=== PATIENT | male | born 1975 | race Caucasian/White ===

== ENCOUNTER 2018-07-12 14:31 | Emergency (ER) | payer SELFPAY ==
[~2018-07-12] VITALS: Ht 165.1 cm; Wt 89.0 kg
[2018-07-12 14:39] VITALS: BP 111/78
[2018-07-12] MEDS ORDERED: IBUP-2213 PO (14:45)
--- NOTE | 2018-07-12 14:45 | NUR ---
PT AMB TO ER BED 6
--- NOTE | 2018-07-12 14:52 | NUR ---
PT BIB FAMILY C/O RT LOW BACK/LEG PAIN S/P LIFTING A BOX 2 DAYS AGO. PAIN 10/. LIMP NOTED TO RIGHT SIDE, PT CANNOT STAND UP STRAIGHT. NO BRUISING, SWELLING, OR DEFORMITY. +CMS. VSS. ER TO SEE PT. HX-NONE MEDS-IBU NKA
[2018-07-12] MEDS ORDERED: MORPHINE SULFATE 4 MG/ML SYR IM ONE (14:55)
[2018-07-12] MEDS ORDERED: KETOROLAC 60 MG/2 ML VIAL IM ONE (14:55)
[2018-07-12 15:56] VITALS: BP 111/78
== END 2018-07-12 15:56 | disposition home or self-care (01) ==
LOC: MED 14:31
DX: S33.5XXA Sprain of ligaments of lumbar spine, initial encounter (principal); F17.200 Nicotine dependence, unspecified, uncomplicated; Z79.1 Long term (current) use of non-steroidal anti-inflammatories (NSAID); X50.0XXA Overexertion from strenuous movement or load, initial encounter; Y93.89 Activity, other specified; Y92.89 Other specified places as the place of occurrence of the external cause; Y99.8 Other external cause status
CPT/HCPCS: 81002; 96372; 99283; J1885; J2270

== ENCOUNTER 2020-03-12 15:32 | Emergency (ER) | payer SELFPAY ==
[~2020-03-12] VITALS: Ht 154.9 cm; Wt 74.8 kg
[~2020-03-12 15:32] MED LIST: IBUP-2213 PO
[2020-03-12 15:44] VITALS: BP 117/79
--- NOTE | 2020-03-12 15:51 | NUR ---
44 y/o male presents to ed for medical clearance. tested + 5 days ago, pt asymptomatic at this time.
[2020-03-12 16:39] VITALS: BP 117/79
--- NOTE | 2020-03-12 16:39 | NUR ---
Patient discharged with v/s stable. Written and verbal after care instructions given and explained in persian by myself. Patient notified that COVID swab results would take 1-3 days for follow up. Patient verbalized understanding. Ambulatory with steady gait. All questions addressed prior to discharge. Advised to follow up with PMD.
--- NOTE | 2020-03-13 15:58 | NUR ---
Received + covid result from lab. Copy to [facility] at infection control.
== END 2020-03-12 16:39 | disposition home or self-care (01) ==
LOC: MED 15:32
DX: Z20.828 Contact with and (suspected) exposure to other viral communicable diseases (principal)
CPT/HCPCS: 99283; U0003

== ENCOUNTER 2022-04-10 13:26 | Emergency (ER) | payer MEDICAID, OTHER ==
[~2022-04-10] VITALS: Ht 160 cm; Wt 81.6 kg
[2022-04-10 13:43] VITALS: BP 129/65
--- NOTE | 2022-04-10 13:45 | NUR ---
PT AMBULATED TO BED 3
[2022-04-10] MEDS ORDERED: KETOROLAC 30 MG/ML VIAL IM ONE (13:55)
--- NOTE | 2022-04-10 14:06 | NUR ---
MEDICATED PT WITH TORODAL IM PER MD ORDER.
[2022-04-10] MEDS ORDERED: NAPR-1704 PO (15:17)
[2022-04-10 15:55] VITALS: BP 135/5
--- NOTE | 2022-04-10 15:56 | NUR ---
Patient discharged with v/s stable. Written and verbal after care instructions given and explained. Patient alert, oriented and verbalized understanding of instructions. Ambulatory with steady gait. All questions addressed prior to discharge. ID band removed. Patient advised to follow up with PMD. Rx of NAPRAXEN given. Patient educated on indication of medication including possible reaction and side effects. Opportunity to ask questions provided and answered.
== END 2022-04-10 15:55 | disposition home or self-care (01) ==
LOC: MED 13:26
DX: S30.0XXA Contusion of lower back and pelvis, initial encounter (principal); M25.551 Pain in right hip; Z79.899 Other long term (current) drug therapy; W19.XXXA Unspecified fall, initial encounter; Y93.89 Activity, other specified; Y92.89 Other specified places as the place of occurrence of the external cause; Y99.8 Other external cause status
CPT/HCPCS: 72100; 73502; 96374; 99284; J1885

== ENCOUNTER 2023-04-09 15:05 | Emergency (ER) | payer MEDICAID ==
[~2023-04-09] VITALS: Ht 160 cm; Wt 90.7 kg
[~2023-04-09 15:05] MED LIST changes: +NAPR-1704 PO
[2023-04-09 15:29] VITALS: BP 126/79; PULSE 99; RESP 14; TEMP 97.9; O2SAT 98
[2023-04-09] MEDS ORDERED: KETOROLAC 30 MG/ML VIAL IM ONE (16:35)
[2023-04-09 17:30] VITALS: O2SAT 98
[2023-04-09] MEDS ORDERED: CAPS1ADH5 TP (17:58)
[2023-04-09] MEDS ORDERED: NAPR-1704 PO (17:58)
[2023-04-09 18:16] VITALS: BP 130/70; PULSE 89; RESP 16; TEMP 98; O2SAT 99
== END 2023-04-09 18:16 | disposition home or self-care (01) ==
LOC: MED 15:05
DX: S86.912A Strain of unspecified muscle(s) and tendon(s) at lower leg level, left leg, initial encounter (principal); S76.012A Strain of muscle, fascia and tendon of left hip, initial encounter; S90.02XA Contusion of left ankle, initial encounter; S40.011A Contusion of right shoulder, initial encounter; Z79.899 Other long term (current) drug therapy; Z79.1 Long term (current) use of non-steroidal anti-inflammatories (NSAID); W22.8XXA Striking against or struck by other objects, initial encounter; Y92.89 Other specified places as the place of occurrence of the external cause; Y93.89 Activity, other specified; Y99.8 Other external cause status
CPT/HCPCS: 73030; 73502; 73562; 73610; 96372; 99284; J1885

== ENCOUNTER 2023-12-05 22:00 | Emergency (ER) | payer MEDICAID, OTHER ==
[~2023-12-05] VITALS: Ht 160 cm; Wt 95.3 kg
[~2023-12-05 22:00] MED LIST changes: +CAPS1ADH5 TP
[2023-12-05 22:28] VITALS: BP 131/74; PULSE 92; RESP 16; TEMP 98.3; O2SAT 95
[2023-12-05 22:40] VITALS: O2SAT 97
[2023-12-05] MEDS: ACETAMINOPHEN EXTRA STRENGTH 500 MG TAB PO ONE (23:21)
[2023-12-05] MEDS: KETOROLAC 30 MG/ML VIAL IM ONE (23:22)
[2023-12-05 23:36] LABS: BASOPHILS # (AUTO) 0.1 K/uL (0.00-0.22); BASOPHILS % (AUTO) 0.9 % (0.0-2.0); EOSINOPHILS # (AUTO) 0.3 K/uL (0-0.4); EOSINOPHILS % (AUTO) 3.9 % (0.0-4.0); HEMATOCRIT 41.6 % (36-52); HEMOGLOBIN 14.3 g/dL (12.0-18.0); LYMPHOCYTES # (AUTO) 2.8 K/uL (2.0-11.5); LYMPHOCYTES % (AUTO) 42.4 % (20.5-51.1); MEAN CORPUSCULAR HEMOGLOBIN 31 pg (27-31); MEAN CORPUSCULAR HGB CONC 34 g/dL (33-37); MEAN CORPUSCULAR VOLUME 89.5 fL (80-94); MONOCYTES # (AUTO) 0.5 K/uL (0.8-1.0); MONOCYTES % (AUTO) 8.3 % (1.7-9.3); NEUTROPHILS # (AUTO) 2.9 K/uL (1.8-7.7); NEUTROPHILS % (AUTO) 44.5 % (42.2-75.2); PLATELET COUNT (AUTO) 165 K/uL (140-450); RED BLOOD CELL COUNT(AUTO) 4.65 MIL/uL (4.20-6.10); RED CELL DISTRIBUTION WIDTH 14.1 % (11.6-13.7); WHITE BLOOD COUNT (AUTO) 6.6 K/uL (4.8-10.8)
[2023-12-05 23:43] LABS: CARBON DIOXIDE 21.6 mmol/L (21-32); CREATININE 0.8 mg/dL (0.6-1.3); POTASSIUM 3.6 mmol/L (3.5-5.1)
[2023-12-05 23:49] LABS: BILIRUBIN,DIRECT 0.2 mg/dL (0.0-0.3); TOTAL BILIRUBIN 0.6 mg/dL (0.0-1.0); TOTAL PROTEIN, SERUM 7.9 g/dL (6.4-8.2)
[2023-12-05 23:57] LABS: APPEARANCE,URINE CLEAR (CLEAR); BILIRUBIN,URINE NEGATIVE (NEGATIVE); BLOOD, URINE NEGATIVE (NEGATIVE); COLOR,URINE YELLOW (YELLOW); LEUKOCYTE ESTERASE ,URINE NEGATIVE (NEGATIVE); NITRITE, URINE NEGATIVE (NEGATIVE); PROTEIN,URINE NEGATIVE (NEGATIVE); UGLUCOSE NEGATIVE (NEGATIVE); UROBILINOGEN,URINE 0.2 EU/dL (0.2 - 1)
[2023-12-06 01:10] VITALS: O2SAT 95
[2023-12-06] MEDS: oxyCODONE 5 MG TAB PO ONE (01:21)
[2023-12-06] MEDS ORDERED: ACET-8905 PO (03:45)
[2023-12-06] MEDS ORDERED: IBUP-2218 PO (03:45)
[2023-12-06 03:54] VITALS: BP 107/62; PULSE 85; RESP 16; TEMP 98
[2023-12-06 03:58] VITALS: O2SAT 96
== END 2023-12-06 03:54 | disposition home or self-care (01) ==
LOC: MED 22:00
DX: R10.11 Right upper quadrant pain (principal); R94.5 Abnormal results of liver function studies; E11.9 Type 2 diabetes mellitus without complications; Z79.1 Long term (current) use of non-steroidal anti-inflammatories (NSAID); Z79.899 Other long term (current) drug therapy
CPT/HCPCS: 36415; 71101; 74176; 76705; 80048; 80076; 81003; 83690; 85025; 96372; 99285; J1885